=== PATIENT | female | born 1955 | race Two or more races ===

== ENCOUNTER 2016-12-26 09:47 | Outpatient (CLI) | payer BC, OTHER ==
[~2016-12-26 09:47] MED LIST: ATOR10TA GT; CANA100T PO; CHOL500052 PO; GABA-532 PO; GABA-534 PO; HYDR-548 PO; INSU100V28 IJ; LOSA1TAB39 PO; METO100T3 PO
[2016-12-26 10:41] LABS: BASOPHILS % (AUTO) 0.3 % (0.0-2.0); DIFF TOTAL % 100 %; EOSINOPHILS # (AUTO) 0.1 /CMM (0.0-0.7); EOSINOPHILS % (AUTO) 1.6 % (0.0-6.0); HEMATOCRIT 46 % (33-45); HEMOGLOBIN 15.3 g/dL (11.5-14.8); LYMPHOCYTES # (AUTO) 2.1 /CMM (0.8-4.8); LYMPHOCYTES % (AUTO) 30.5 % (20.0-44.0); MEAN CORPUSCULAR HEMOGLOBIN 30 PG (26.0-33.0); MEAN CORPUSCULAR HGB CONC 33 g/dl (31.0-36.0); MEAN CORPUSCULAR VOLUME 90 fL (82-100); MONOCYTES # (AUTO) 0.4 /CMM (0.1-1.30); MONOCYTES % (AUTO) 5.8 % (2.0-12.0); NEUTROPHILS # (AUTO) 4.3 /CMM (1.8-8.9); NEUTROPHILS % (AUTO) 61.8 % (43.0-81.0); PLATELET COUNT (AUTO) 183 /CMM (150-450); RED BLOOD CELL COUNT(AUTO) 5.15 MIL/uL (4.0-5.2); WHITE BLOOD COUNT (AUTO) 6.9 K/uL (4.3-11.0)
[2016-12-26 10:52] LABS: KETONES,URINE NEGATIVE (NEGATIVE); LEUKOCYTE ESTERASE ,URINE NEGATIVE (NEGATIVE)
[2016-12-26 10:53] LABS: ADD UA MICROSCOPIC YES
[2016-12-26 10:59] LABS: ADD URINE CULTURE NO; WBC,URINE 0-2 /HPF (0-3)
[2016-12-26 11:09] LABS: ALBUMIN 4.1 g/dL (3.4-5.0); BILIRUBIN,TOTAL 0.5 mg/dL (0.2-1.0); CALCIUM, SERUM 10.3 mg/dL (8.5-10.1); CREATININE 1.1 mg/dL (0.6-1.3); POTASSIUM 4.3 mmol/L (3.5-5.1); TOTAL PROTEIN, SERUM 8.1 g/dL (6.4-8.2)
[2016-12-26 11:16] LABS: ERYTHROCYTE SEDIMENTATION RATE 9 MM/HR (0-30)
[2016-12-26 11:43] LABS: THYROID STIMULATING HORMONE 0.71 uIU/mL (0.358-3.74); URIC ACID 7.9 mg/dL (2.6-7.2)
[2016-12-27 12:35] LABS: VIT D, 25-HYDROXY 49.9 ng/mL (30.0-100.0)
[2016-12-27 15:48] LABS: CA 27.29 6.4 U/mL (0.0-38.6)
== END 2016-12-26 23:59 | disposition home or self-care (01) ==
LOC: LAB 09:47
PROVIDERS: ATTEND Legal Medicine
DX: R10.9 Unspecified abdominal pain (principal); Z90.49 Acquired absence of other specified parts of digestive tract
CPT/HCPCS: 36415; 80053-TC; 80061-TC; 81000-TC; 82043; 82306; 82728-TC; 82746; 83540-TC; 84443-TC; 84550-TC; 85025-TC; 85652-TC; 86300; 86304

== ENCOUNTER 2017-01-25 08:13 | Outpatient (CLI) | payer BC, OTHER | END 2017-01-25 23:59 | disposition home or self-care (01) | LOC: MRI 08:13 | PROVIDERS: ATTEND Legal Medicine | DX: S46.012A Strain of muscle(s) and tendon(s) of the rotator cuff of left shoulder, initial encounter (principal); X58.XXXA Exposure to other specified factors, initial encounter; Y93.89 Activity, other specified; Y92.89 Other specified places as the place of occurrence of the external cause; Y99.8 Other external cause status | CPT/HCPCS: 73221-TC ==

== ENCOUNTER 2017-05-03 12:41 | Outpatient (CLI) | payer BC, OTHER | END 2017-05-03 23:59 | disposition home or self-care (01) | LOC: CARD 12:41 | PROVIDERS: ATTEND Legal Medicine | DX: M79.604 Pain in right leg (principal); M79.605 Pain in left leg | CPT/HCPCS: 93970-TC ==

== ENCOUNTER 2017-05-14 07:35 | Outpatient (CLI) | payer BC, OTHER ==
[2017-05-14 09:01] LABS: BASOPHILS % (AUTO) 0.5 % (0.0-2.0); EOSINOPHILS % (AUTO) 0.6 % (0.0-6.0); HEMATOCRIT 44 % (33-45); HEMOGLOBIN 14.9 g/dL (11.5-14.8); LYMPHOCYTES # (AUTO) 1.8 /CMM (0.8-4.8); LYMPHOCYTES % (AUTO) 23.4 % (20.0-44.0); MEAN CORPUSCULAR HEMOGLOBIN 30 PG (26.0-33.0); MEAN CORPUSCULAR HGB CONC 34 g/dl (31.0-36.0); MEAN CORPUSCULAR VOLUME 90 fL (82-100); MONOCYTES # (AUTO) 0.5 /CMM (0.1-1.30); MONOCYTES % (AUTO) 5.8 % (2.0-12.0); NEUTROPHILS # (AUTO) 5.5 /CMM (1.8-8.9); NEUTROPHILS % (AUTO) 69.7 % (43.0-81.0); PLATELET COUNT (AUTO) 196 /CMM (150-450); RDW COEFFICIENT OF VARIATION 14.1 (11.5-15.0); RED BLOOD CELL COUNT(AUTO) 4.92 MIL/uL (4.0-5.2); WHITE BLOOD COUNT (AUTO) 7.8 K/uL (4.3-11.0)
[2017-05-14 09:32] LABS: ALBUMIN 3.6 g/dL (3.4-5.0); BILIRUBIN,TOTAL 0.4 mg/dL (0.2-1.0); TOTAL PROTEIN, SERUM 7.3 g/dL (6.4-8.2)
[2017-05-14 09:38] LABS: THYROID STIMULATING HORMONE 0.65 uIU/mL (0.358-3.74); URIC ACID 6.7 mg/dL (2.6-7.2)
[2017-05-15 12:16] LABS: CA 27.29 6.2 U/mL (0.0-38.6)
== END 2017-05-14 23:59 | disposition home or self-care (01) ==
LOC: LAB 07:35
PROVIDERS: ATTEND Legal Medicine
DX: C50.911 Malignant neoplasm of unspecified site of right female breast (principal); E78.00 Pure hypercholesterolemia, unspecified; N39.0 Urinary tract infection, site not specified; E11.9 Type 2 diabetes mellitus without complications; I10 Essential (primary) hypertension; E55.9 Vitamin D deficiency, unspecified
CPT/HCPCS: 36415; 80053-TC; 80061-TC; 80074; 82306; 84443-TC; 84550-TC; 85025-TC; 86300; 86304

== ENCOUNTER 2017-11-29 07:47 | Outpatient (CLI) | payer BC ==
[~2017-11-29 07:47] MED LIST changes: +METO100T14 PO; -METO100T3 PO
== END 2017-11-29 23:59 | disposition home or self-care (01) ==
LOC: MRI 07:47
PROVIDERS: ATTEND Physical Medicine & Rehabilitation Pain Medicine
DX: M51.36 Other intervertebral disc degeneration, lumbar region (principal); M48.061 Spinal stenosis, lumbar region without neurogenic claudication; T70.3XXA Caisson disease [decompression sickness], initial encounter; X58.XXXA Exposure to other specified factors, initial encounter; M16.0 Bilateral primary osteoarthritis of hip
CPT/HCPCS: 72148-TC; 73721-TC

== ENCOUNTER 2017-12-31 07:41 | Outpatient (CLI) | payer BC ==
[2017-12-31 09:09] LABS: BASOPHILS % (AUTO) 0.5 % (0.0-2.0); EOSINOPHILS # (AUTO) 0.1 /CMM (0.0-0.7); EOSINOPHILS % (AUTO) 1.3 % (0.0-6.0); HEMATOCRIT 43 % (33-45); HEMOGLOBIN 14.6 g/dL (11.5-14.8); LYMPHOCYTES # (AUTO) 1.8 /CMM (0.8-4.8); LYMPHOCYTES % (AUTO) 27.2 % (20.0-44.0); MEAN CORPUSCULAR HEMOGLOBIN 30 PG (26.0-33.0); MEAN CORPUSCULAR HGB CONC 34 g/dl (31.0-36.0); MEAN CORPUSCULAR VOLUME 91 fL (82-100); MONOCYTES # (AUTO) 0.3 /CMM (0.1-1.30); MONOCYTES % (AUTO) 4.8 % (2.0-12.0); NEUTROPHILS # (AUTO) 4.5 /CMM (1.8-8.9); NEUTROPHILS % (AUTO) 66.2 % (43.0-81.0); PLATELET COUNT (AUTO) 203 /CMM (150-450); RDW COEFFICIENT OF VARIATION 13.5 (11.5-15.0); RED BLOOD CELL COUNT(AUTO) 4.78 MIL/uL (4.0-5.2); WHITE BLOOD COUNT (AUTO) 6.8 K/uL (4.3-11.0)
[2017-12-31 09:29] LABS: ALBUMIN 3.7 g/dL (3.4-5.0); BILIRUBIN,TOTAL 0.4 mg/dL (0.2-1.0); CALCIUM, SERUM 9.6 mg/dL (8.5-10.1); POTASSIUM 3.4 mmol/L (3.5-5.1); TOTAL PROTEIN, SERUM 7.9 g/dL (6.4-8.2)
[2017-12-31 09:32] LABS: APPEARANCE,URINE CLOUDY (CLEAR); BILIRUBIN,URINE NEGATIVE (NEGATIVE); BLOOD, URINE TRACE-INTA Ery/uL (NEGATIVE); COLOR,URINE YELLOW (YELLOW); KETONES,URINE NEGATIVE (NEGATIVE); LEUKOCYTE ESTERASE ,URINE 1+ (NEGATIVE); NITRITE, URINE NEGATIVE (NEGATIVE); PROTEIN,URINE NEGATIVE (NEGATIVE); UGLUCOSE 3+ mg/dL (NEGATIVE); UROBILINOGEN,URINE 0.2 EU/dL (0.2)
[2017-12-31 09:42] LABS: C-REACTIVE PROTEIN 0.5 mg/dL (0.0-0.9); THYROID STIMULATING HORMONE 0.718 uIU/mL (0.358-3.74); URIC ACID 7.7 mg/dL (2.6-7.2)
[2017-12-31 09:43] LABS: BACTERIA,URINE 2+ /HPF (None Seen); RBC,URINE 0-2 /HPF (0-2); SQUAMOUS EPITHELIAL CELL,UR Many /HPF (None Seen); YEAST,URINE Rare /HPF (None Seen)
[2018-01-01 12:15] LABS: CANCER AG, 125 26.3 U/mL (0.0-38.1); CANCER AG, 15-3 10.2 U/mL (0.0-25.0)
== END 2017-12-31 23:59 | disposition home or self-care (01) ==
LOC: LAB 07:41
PROVIDERS: ATTEND Legal Medicine
DX: I12.9 Hypertensive chronic kidney disease with stage 1 through stage 4 chronic kidney disease, or unspecified chronic kidney disease (principal); E11.22 Type 2 diabetes mellitus with diabetic chronic kidney disease; N18.9 Chronic kidney disease, unspecified; D64.9 Anemia, unspecified; E03.9 Hypothyroidism, unspecified
CPT/HCPCS: 36415; 80053-TC; 80061-TC; 81000-TC; 82306; 82378; 82728-TC; 82746; 83540-TC; 84439-TC; 84443-TC; 84550-TC; 85025-TC; 85652-TC; 86140-TC; 86300; 86304; 87086-TC; 87186-TC

== ENCOUNTER 2018-04-22 09:04 | Outpatient (CLI) | payer BC | END 2018-04-22 23:59 | disposition home or self-care (01) | LOC: CT 09:04 | PROVIDERS: ATTEND Neurological Surgery | DX: M51.36 Other intervertebral disc degeneration, lumbar region (principal); M51.25 Other intervertebral disc displacement, thoracolumbar region; M48.05 Spinal stenosis, thoracolumbar region; M48.07 Spinal stenosis, lumbosacral region | CPT/HCPCS: 72131-TC ==

== ENCOUNTER 2018-06-02 08:08 | Outpatient (CLI) | payer BC ==
[2018-06-02 09:18] LABS: CALCIUM, SERUM 8.7 mg/dL (8.5-10.1); CREATININE 1.3 mg/dL (0.6-1.3); POTASSIUM 4.1 mmol/L (3.5-5.1)
== END 2018-06-02 23:59 | disposition home or self-care (01) ==
LOC: LAB 08:08
PROVIDERS: ATTEND Legal Medicine
DX: E11.9 Type 2 diabetes mellitus without complications (principal); M47.894 Other spondylosis, thoracic region
CPT/HCPCS: 36415; 72074-TC; 72110-TC; 80048-TC

== ENCOUNTER 2018-06-04 09:56 | Outpatient (CLI) | payer BC ==
[2018-06-04] MEDS ORDERED: GADODIAMIDE 5 MMOL/10 ML VIAL IJ ONE (09:57)
== END 2018-06-04 23:59 | disposition home or self-care (01) ==
LOC: DS 09:56
DX: M51.24 Other intervertebral disc displacement, thoracic region (principal); M51.34 Other intervertebral disc degeneration, thoracic region; M51.26 Other intervertebral disc displacement, lumbar region; M51.36 Other intervertebral disc degeneration, lumbar region
CPT/HCPCS: 72146-TC; 72158-TC

== ENCOUNTER 2018-09-10 06:58 | Outpatient (CLI) | payer BC ==
[~2018-09-10 06:58] MED LIST changes: +HYDR-4354 PO; -HYDR-548 PO
[2018-09-10 07:34] LABS: BASOPHILS # (AUTO) 0.1 /CMM (0.0-0.2); BASOPHILS % (AUTO) 0.8 % (0.0-2.0); EOSINOPHILS % (AUTO) 2.1 % (0.0-6.0); HEMATOCRIT 47 % (33-45); HEMOGLOBIN 15.9 g/dL (11.5-14.8); LYMPHOCYTES # (AUTO) 1.7 /CMM (0.8-4.8); LYMPHOCYTES % (AUTO) 21.4 % (20.0-44.0); MEAN CORPUSCULAR HGB CONC 34 g/dl (31.0-36.0); MEAN CORPUSCULAR VOLUME 90 fL (82-100); MONOCYTES # (AUTO) 0.4 /CMM (0.1-1.30); MONOCYTES % (AUTO) 4.3 % (2.0-12.0); NEUTROPHILS # (AUTO) 5.8 /CMM (1.8-8.9); NEUTROPHILS % (AUTO) 71.4 % (43.0-81.0); PLATELET COUNT (AUTO) 202 /CMM (150-450); RED BLOOD CELL COUNT(AUTO) 5.28 MIL/uL (4.0-5.2); WHITE BLOOD COUNT (AUTO) 8.2 K/uL (4.3-11.0)
[2018-09-10 07:38] LABS: APPEARANCE,URINE SL CLOUDY (CLEAR); BILIRUBIN,URINE NEGATIVE (NEGATIVE); BLOOD, URINE NEGATIVE Ery/uL (NEGATIVE); COLOR,URINE YELLOW (YELLOW); KETONES,URINE NEGATIVE (NEGATIVE); LEUKOCYTE ESTERASE ,URINE NEGATIVE (NEGATIVE); NITRITE, URINE NEGATIVE (NEGATIVE); PH,URINE 5.5 (5.0-8.0); PROTEIN,URINE NEGATIVE (NEGATIVE); UGLUCOSE 3+ mg/dL (NEGATIVE); UROBILINOGEN,URINE 0.2 EU/dL (0.2)
[2018-09-10 07:43] LABS: BACTERIA,URINE None seen /HPF (None Seen); RBC,URINE 0-2 /HPF (0-2); SQUAMOUS EPITHELIAL CELL,UR Few /HPF (None Seen); WBC,URINE NONE SEEN /HPF (0-3)
[2018-09-10 08:01] LABS: ALBUMIN 3.8 g/dL (3.4-5.0); BILIRUBIN,TOTAL 0.6 mg/dL (0.2-1.0); CALCIUM, SERUM 9.4 mg/dL (8.5-10.1); CREATININE 1.3 mg/dL (0.6-1.3); POTASSIUM 4.3 mmol/L (3.5-5.1); TOTAL PROTEIN, SERUM 7.7 g/dL (6.4-8.2)
[2018-09-10 08:11] LABS: THYROID STIMULATING HORMONE 1.002 uIU/mL (0.358-3.74); URIC ACID 8.3 mg/dL (2.6-7.2)
[2018-09-11 08:25] LABS: CANCER AG, 125 23.3 U/mL (0.0-38.1); CANCER AG, 15-3 9.4 U/mL (0.0-25.0)
[2018-09-11 12:07] LABS: *FOLIC ACID 12.6 ng/mL (>3.0)
== END 2018-09-10 23:59 | disposition home or self-care (01) ==
LOC: LAB 06:58
PROVIDERS: ATTEND Legal Medicine
DX: Z00.01 Encounter for general adult medical examination with abnormal findings (principal); E11.9 Type 2 diabetes mellitus without complications; E55.9 Vitamin D deficiency, unspecified; I10 Essential (primary) hypertension; J44.9 Chronic obstructive pulmonary disease, unspecified
CPT/HCPCS: 36415; 80053-TC; 80061-TC; 81000-TC; 82306; 82728-TC; 83540-TC; 84439-TC; 84443-TC; 84550-TC; 85025-TC; 86300; 86304

== ENCOUNTER 2018-12-25 07:38 | Outpatient (CLI) | payer BC | END 2018-12-25 23:59 | disposition home or self-care (01) | LOC: MRI 07:38 | PROVIDERS: ATTEND Specialist | DX: M51.27 Other intervertebral disc displacement, lumbosacral region (principal); M51.36 Other intervertebral disc degeneration, lumbar region; M51.25 Other intervertebral disc displacement, thoracolumbar region; M51.34 Other intervertebral disc degeneration, thoracic region; M25.78 Osteophyte, vertebrae; M12.88 Other specific arthropathies, not elsewhere classified, other specified site; M48.05 Spinal stenosis, thoracolumbar region; M48.07 Spinal stenosis, lumbosacral region | CPT/HCPCS: 72146-TC; 72148-TC ==

== ENCOUNTER 2019-01-09 08:44 | Outpatient (CLI) | payer BC | END 2019-01-09 23:59 | disposition home or self-care (01) | LOC: CT 08:44 | PROVIDERS: ATTEND Specialist | DX: M51.05 Intervertebral disc disorders with myelopathy, thoracolumbar region (principal); M48.05 Spinal stenosis, thoracolumbar region; M43.16 Spondylolisthesis, lumbar region; M12.88 Other specific arthropathies, not elsewhere classified, other specified site; I70.0 Atherosclerosis of aorta; Z90.49 Acquired absence of other specified parts of digestive tract | CPT/HCPCS: 72074-TC; 72110-TC; 72128-TC ==

== ENCOUNTER 2019-02-04 08:26 | Outpatient (CLI) | payer BC ==
[2019-02-04 09:04] LABS: APPEARANCE,URINE SL CLOUDY (CLEAR); BILIRUBIN,URINE NEGATIVE (NEGATIVE); BLOOD, URINE NEGATIVE Ery/uL (NEGATIVE); COLOR,URINE YELLOW (YELLOW); KETONES,URINE NEGATIVE (NEGATIVE); LEUKOCYTE ESTERASE ,URINE NEGATIVE (NEGATIVE); NITRITE, URINE NEGATIVE (NEGATIVE); PROTEIN,URINE NEGATIVE (NEGATIVE); UGLUCOSE 3+ mg/dL (NEGATIVE); UROBILINOGEN,URINE 0.2 EU/dL (0.2)
[2019-02-04 09:09] LABS: BASOPHILS # (AUTO) 0.1 /CMM (0.0-0.2); BASOPHILS % (AUTO) 0.6 % (0.0-2.0); EOSINOPHILS % (AUTO) 1.3 % (0.0-6.0); HEMATOCRIT 49 % (33-45); HEMOGLOBIN 16.4 g/dL (11.5-14.8); LYMPHOCYTES # (AUTO) 1.9 /CMM (0.8-4.8); LYMPHOCYTES % (AUTO) 22.1 % (20.0-44.0); MEAN CORPUSCULAR HGB CONC 34 g/dl (31.0-36.0); MEAN CORPUSCULAR VOLUME 91 fL (82-100); MONOCYTES # (AUTO) 0.5 /CMM (0.1-1.30); MONOCYTES % (AUTO) 5.3 % (2.0-12.0); NEUTROPHILS # (AUTO) 6.1 /CMM (1.8-8.9); NEUTROPHILS % (AUTO) 70.7 % (43.0-81.0); PLATELET COUNT (AUTO) 210 /CMM (150-450); RED BLOOD CELL COUNT(AUTO) 5.32 MIL/uL (4.0-5.2); WHITE BLOOD COUNT (AUTO) 8.6 K/uL (4.3-11.0)
[2019-02-04 09:26] LABS: ALBUMIN 4.2 g/dL (3.4-5.0); BILIRUBIN,TOTAL 0.5 mg/dL (0.2-1.0); CALCIUM, SERUM 10.2 mg/dL (8.5-10.1); CREATININE 1.1 mg/dL (0.6-1.3); POTASSIUM 3.6 mmol/L (3.5-5.1); TOTAL PROTEIN, SERUM 8.5 g/dL (6.4-8.2)
[2019-02-04 10:11] LABS: BACTERIA,URINE Few /HPF (None Seen); RBC,URINE NONE SEEN /HPF (0-2); SQUAMOUS EPITHELIAL CELL,UR Few /HPF (None Seen); WBC,URINE 0-2 /HPF (0-3); YEAST,URINE Few /HPF (None Seen)
[2019-02-04 10:23] LABS: FREE T4 (FREE THYROXINE) 1.29 ng/dL (0.76-1.46)
[2019-02-05 08:07] LABS: CANCER AG, 125 26.7 U/mL (0.0-38.1); CANCER AG, 15-3 9.8 U/mL (0.0-25.0); FOLIC ACID 17.1 ng/mL (>3.0)
== END 2019-02-04 23:59 | disposition home or self-care (01) ==
LOC: LAB 08:26
PROVIDERS: ATTEND Legal Medicine
DX: Z00.00 Encounter for general adult medical examination without abnormal findings (principal); D64.9 Anemia, unspecified; E55.9 Vitamin D deficiency, unspecified; E11.9 Type 2 diabetes mellitus without complications; I10 Essential (primary) hypertension; E03.9 Hypothyroidism, unspecified
CPT/HCPCS: 36415; 80053-TC; 80061-TC; 81000-TC; 82306; 83540-TC; 84439-TC; 84550-TC; 85025-TC; 85730-TC; 86300; 86304; 87086-TC; 87186-TC

== ENCOUNTER 2019-02-17 07:10 | Outpatient (CLI) | payer BC ==
[2019-02-17 11:16] LABS: BASOPHILS % (AUTO) 0.5 % (0.0-2.0); EOSINOPHILS % (AUTO) 0.8 % (0.0-6.0); HEMATOCRIT 47 % (33-45); LYMPHOCYTES # (AUTO) 2.2 /CMM (0.8-4.8); LYMPHOCYTES % (AUTO) 24.4 % (20.0-44.0); MEAN CORPUSCULAR HGB CONC 34 g/dl (31.0-36.0); MEAN CORPUSCULAR VOLUME 91 fL (82-100); MONOCYTES # (AUTO) 0.4 /CMM (0.1-1.30); MONOCYTES % (AUTO) 4.1 % (2.0-12.0); NEUTROPHILS # (AUTO) 6.3 /CMM (1.8-8.9); NEUTROPHILS % (AUTO) 70.2 % (43.0-81.0); PLATELET COUNT (AUTO) 194 /CMM (150-450); RED BLOOD CELL COUNT(AUTO) 5.17 MIL/uL (4.0-5.2); WHITE BLOOD COUNT (AUTO) 8.9 K/uL (4.3-11.0)
[2019-02-17 11:20] LABS: APPEARANCE,URINE CLEAR (CLEAR); BILIRUBIN,URINE NEGATIVE (NEGATIVE); BLOOD, URINE NEGATIVE Ery/uL (NEGATIVE); COLOR,URINE YELLOW (YELLOW); KETONES,URINE NEGATIVE (NEGATIVE); LEUKOCYTE ESTERASE ,URINE NEGATIVE (NEGATIVE); NITRITE, URINE NEGATIVE (NEGATIVE); PROTEIN,URINE NEGATIVE (NEGATIVE); UGLUCOSE 3+ mg/dL (NEGATIVE); UROBILINOGEN,URINE 0.2 EU/dL (0.2)
[2019-02-17 11:24] LABS: CALCIUM, SERUM 9.8 mg/dL (8.5-10.1); CREATININE 1.1 mg/dL (0.6-1.3); POTASSIUM 3.9 mmol/L (3.5-5.1)
== END 2019-02-17 23:59 | disposition home or self-care (01) ==
LOC: CARD 07:10
PROVIDERS: ATTEND Internal Medicine Cardiovascular Disease
DX: Z01.810 Encounter for preprocedural cardiovascular examination (principal); I10 Essential (primary) hypertension; D64.9 Anemia, unspecified; R53.1 Weakness; R06.02 Shortness of breath; D68.59 Other primary thrombophilia
CPT/HCPCS: 36415; 80048-TC; 81000-TC; 85025-TC; 85610-TC; 85730-TC; 87086-TC; 87186-TC; 93307-TC

== ENCOUNTER 2019-06-01 10:33 | Outpatient (CLI) | payer BC ==
[2019-06-01 11:48] LABS: BILIRUBIN,URINE NEGATIVE (NEGATIVE); BLOOD, URINE TRACE Ery/uL (NEGATIVE); COLOR,URINE YELLOW (YELLOW); KETONES,URINE NEGATIVE (NEGATIVE); LEUKOCYTE ESTERASE ,URINE NEGATIVE (NEGATIVE); NITRITE, URINE NEGATIVE (NEGATIVE); PH,URINE 5.5 (5.0-8.0); PROTEIN,URINE NEGATIVE (NEGATIVE); UGLUCOSE 3+ mg/dL (NEGATIVE); UROBILINOGEN,URINE 0.2 EU/dL (0.2)
[2019-06-01 11:53] LABS: BASOPHILS # (AUTO) 0.1 /CMM (0.0-0.2); BASOPHILS % (AUTO) 1.1 % (0.0-2.0); EOSINOPHILS % (AUTO) 0.8 % (0.0-6.0); HEMATOCRIT 52 % (33-45); HEMOGLOBIN 16.7 g/dL (11.5-14.8); LYMPHOCYTES # (AUTO) 3.1 /CMM (0.8-4.8); LYMPHOCYTES % (AUTO) 26.6 % (20.0-44.0); MEAN CORPUSCULAR HGB CONC 32 g/dl (31.0-36.0); MEAN CORPUSCULAR VOLUME 88 fL (82-100); MONOCYTES # (AUTO) 0.6 /CMM (0.1-1.30); MONOCYTES % (AUTO) 4.9 % (2.0-12.0); NEUTROPHILS # (AUTO) 7.9 /CMM (1.8-8.9); NEUTROPHILS % (AUTO) 66.6 % (43.0-81.0); PLATELET COUNT (AUTO) 251 /CMM (150-450); WHITE BLOOD COUNT (AUTO) 11.8 K/uL (4.3-11.0)
[2019-06-01 12:00] LABS: ALBUMIN 4.4 g/dL (3.4-5.0); APPEARANCE,URINE SLIGHTLY HAZY (CLEAR); BILIRUBIN,TOTAL 0.6 mg/dL (0.2-1.0); CALCIUM, SERUM 9.5 mg/dL (8.5-10.1); CREATININE 1.1 mg/dL (0.6-1.3); POTASSIUM 3.6 mmol/L (3.5-5.1); TOTAL PROTEIN, SERUM 8.6 g/dL (6.4-8.2)
[2019-06-01 12:02] LABS: BACTERIA,URINE None seen /HPF (None Seen); RBC,URINE 0-2 /HPF (0-2); SQUAMOUS EPITHELIAL CELL,UR Few /HPF (None Seen)
[2019-06-01 12:10] LABS: THYROID STIMULATING HORMONE 1.345 uIU/mL (0.358-3.74); URIC ACID 6.3 mg/dL (2.6-7.2)
[2019-06-02 13:07] LABS: CANCER AG, 125 25.2 U/mL (0.0-38.1); CANCER AG, 15-3 8.2 U/mL (0.0-25.0); FOLIC ACID 11.2 ng/mL (>3.0)
== END 2019-06-01 23:59 | disposition home or self-care (01) ==
LOC: LAB 10:33
PROVIDERS: ATTEND Legal Medicine
DX: Z00.00 Encounter for general adult medical examination without abnormal findings (principal); M47.814 Spondylosis without myelopathy or radiculopathy, thoracic region; E11.9 Type 2 diabetes mellitus without complications; E78.00 Pure hypercholesterolemia, unspecified; E03.9 Hypothyroidism, unspecified; E55.9 Vitamin D deficiency, unspecified; I10 Essential (primary) hypertension; D64.9 Anemia, unspecified; Z90.49 Acquired absence of other specified parts of digestive tract
CPT/HCPCS: 72074-TC; 80053-TC; 80061-TC; 81000-TC; 82306; 82728-TC; 83540-TC; 84439-TC; 84443-TC; 84550-TC; 85025-TC; 86300; 86304; 87086-TC

== ENCOUNTER 2019-07-28 09:50 | Outpatient (CLI) | payer BC ==
[2019-07-28 11:23] LABS: BASOPHILS # (AUTO) 0.1 /CMM (0.0-0.2); BASOPHILS % (AUTO) 0.6 % (0.0-2.0); EOSINOPHILS % (AUTO) 0.6 % (0.0-6.0); HEMATOCRIT 49 % (33-45); HEMOGLOBIN 16.2 g/dL (11.5-14.8); LYMPHOCYTES # (AUTO) 2.3 /CMM (0.8-4.8); LYMPHOCYTES % (AUTO) 27.2 % (20.0-44.0); MEAN CORPUSCULAR HGB CONC 33 g/dl (31.0-36.0); MEAN CORPUSCULAR VOLUME 89 fL (82-100); MONOCYTES # (AUTO) 0.4 /CMM (0.1-1.30); MONOCYTES % (AUTO) 4.5 % (2.0-12.0); NEUTROPHILS # (AUTO) 5.8 /CMM (1.8-8.9); NEUTROPHILS % (AUTO) 67.1 % (43.0-81.0); PLATELET COUNT (AUTO) 193 /CMM (150-450); RED BLOOD CELL COUNT(AUTO) 5.53 MIL/uL (4.0-5.2); WHITE BLOOD COUNT (AUTO) 8.6 K/uL (4.3-11.0)
[2019-07-28 11:49] LABS: APPEARANCE,URINE Clear (CLEAR); BILIRUBIN,URINE Negative (NEGATIVE); BLOOD, URINE Negative Ery/uL (NEGATIVE); COLOR,URINE Yellow (YELLOW); KETONES,URINE Negative (NEGATIVE); LEUKOCYTE ESTERASE ,URINE Negative (NEGATIVE); NITRITE, URINE Negative (NEGATIVE); PROTEIN,URINE Negative (NEGATIVE); UGLUCOSE 500 MG/DL mg/dL (NEGATIVE); UROBILINOGEN,URINE 0.2 EU/dL (0.2)
[2019-07-28 13:46] LABS: ALBUMIN 4.3 g/dL (3.4-5.0); BILIRUBIN,TOTAL 0.5 mg/dL (0.2-1.0); CALCIUM, SERUM 9.9 mg/dL (8.5-10.1); CREATININE 1.1 mg/dL (0.6-1.3); POTASSIUM 3.7 mmol/L (3.5-5.1); TOTAL PROTEIN, SERUM 8.5 g/dL (6.4-8.2)
[2019-07-28 14:25] LABS: LYMPHOCYTES % (MANUAL) 8 % (16-48); MONOCYTES % (MANUAL) 4 % (0-11.0); NEUTROPHILS % (MANUAL) 88 (42-76)
[2019-07-28 16:40] LABS: URIC ACID 5.8 mg/dL (2.6-7.2)
[2019-07-28 17:05] LABS: THYROID STIMULATING HORMONE 1.044 uIU/mL (0.358-3.74)
[2019-07-29 07:09] LABS: CA 27.29 <3.5 U/mL (0.0-38.6)
[2019-07-29 08:08] LABS: CANCER AG, 125 21.4 U/mL (0.0-38.1); CANCER AG, 15-3 6.5 U/mL (0.0-25.0)
== END 2019-07-28 23:59 | disposition home or self-care (01) ==
LOC: CT 09:50
PROVIDERS: ATTEND Legal Medicine
DX: Z00.00 Encounter for general adult medical examination without abnormal findings (principal); M17.12 Unilateral primary osteoarthritis, left knee; M22.8X2 Other disorders of patella, left knee; E27.8 Other specified disorders of adrenal gland; M47.816 Spondylosis without myelopathy or radiculopathy, lumbar region; I25.10 Atherosclerotic heart disease of native coronary artery without angina pectoris; I70.0 Atherosclerosis of aorta; E78.00 Pure hypercholesterolemia, unspecified; I12.9 Hypertensive chronic kidney disease with stage 1 through stage 4 chronic kidney disease, or unspecified chronic kidney disease; E11.22 Type 2 diabetes mellitus with diabetic chronic kidney disease; N18.9 Chronic kidney disease, unspecified; E03.9 Hypothyroidism, unspecified; D64.9 Anemia, unspecified; E55.9 Vitamin D deficiency, unspecified; Z90.49 Acquired absence of other specified parts of digestive tract
CPT/HCPCS: 36415; 73562; 80053-TC; 80061-TC; 81000-TC; 82306; 82728-TC; 83540-TC; 84439-TC; 84443-TC; 84550-TC; 85025-TC; 86300; 86304; 87086-TC; 87186-TC

== ENCOUNTER 2019-09-14 10:11 | Outpatient (CLI) | payer BC | END 2019-09-14 23:59 | disposition home or self-care (01) | LOC: RAD 10:11 | DX: M48.04 Spinal stenosis, thoracic region (principal); M25.78 Osteophyte, vertebrae; Z98.1 Arthrodesis status | CPT/HCPCS: 72074-TC ==

== ENCOUNTER 2019-11-13 07:51 | Outpatient (CLI) | payer BC ==
[2019-11-13 08:42] LABS: BASOPHILS # (AUTO) 0.1 /CMM (0.0-0.2); BASOPHILS % (AUTO) 0.8 % (0.0-2.0); HEMATOCRIT 49 % (33-45); MEAN CORPUSCULAR HGB CONC 32 g/dl (31.0-36.0); MEAN CORPUSCULAR VOLUME 90 fL (82-100); MONOCYTES # (AUTO) 0.3 /CMM (0.1-1.30); MONOCYTES % (AUTO) 4.2 % (2.0-12.0); NEUTROPHILS # (AUTO) 5.6 /CMM (1.8-8.9); PLATELET COUNT (AUTO) 190 /CMM (150-450); RED BLOOD CELL COUNT(AUTO) 5.49 MIL/uL (4.0-5.2); WHITE BLOOD COUNT (AUTO) 8.2 K/uL (4.3-11.0)
[2019-11-13 09:13] LABS: C-REACTIVE PROTEIN < 0.2 mg/dL (0.0-0.9)
[2019-11-13 10:12] LABS: ALANINE AMINOTRANSFERASE 25 U/L (12-78); ALBUMIN 3.9 g/dL (3.4-5.0); ALKALINE PHOSPHATASE 108 U/L (46-116); ASPARTATE AMINOTRANSFERASE 27 U/L (15-37); BILIRUBIN,TOTAL 0.4 mg/dL (0.2-1.0); CALCIUM, SERUM 9.8 mg/dL (8.5-10.1); CARBON DIOXIDE 19 mmol/L (21-32); CHLORIDE 103 mmol/L (98-107); CREATININE 1.2 mg/dL (0.6-1.3); GLUCOSE 252 mg/dL (74-106); POTASSIUM 4.7 mmol/L (3.5-5.1); SODIUM SERUM 142 mmol/L (136-145); TOTAL PROTEIN, SERUM 7.8 g/dL (6.4-8.2); UREA NITROGEN, BLOOD 21 mg/dL (7-18)
[2019-11-14 08:06] LABS: CA 27.29 5.2 U/mL (0.0-38.6)
[2019-11-14 11:06] LABS: CANCER AG, 125 19.4 U/mL (0.0-38.1); CANCER AG, 15-3 6.9 U/mL (0.0-25.0)
== END 2019-11-13 23:59 | disposition home or self-care (01) ==
LOC: LAB 07:51
PROVIDERS: ATTEND Legal Medicine
DX: C50.911 Malignant neoplasm of unspecified site of right female breast (principal)
CPT/HCPCS: 36415; 80053-TC; 85025-TC; 85652-TC; 86140-TC; 86300; 86304

== ENCOUNTER 2019-11-17 09:10 | Outpatient (CLI) | payer BC ==
[2019-11-17] MEDS ORDERED: IV NS 0.9% 250 ML IV ONE (09:19)
[2019-11-17] MEDS ORDERED: CT SWABBABLE VALVE TRANS SET 1 EA INFUS.SET MC ONE (09:19)
[2019-11-17] MEDS ORDERED: IOHEXOL-300 100 ML VIAL IV ONE (09:19)
== END 2019-11-17 23:59 | disposition home or self-care (01) ==
LOC: CT 09:10
PROVIDERS: ATTEND Legal Medicine
DX: I25.10 Atherosclerotic heart disease of native coronary artery without angina pectoris (principal); M43.24 Fusion of spine, thoracic region; R22.2 Localized swelling, mass and lump, trunk; N64.59 Other signs and symptoms in breast; Z90.49 Acquired absence of other specified parts of digestive tract
CPT/HCPCS: 71260; J7050; Q9967

== ENCOUNTER 2019-12-16 07:47 | Outpatient (CLI) | payer BC ==
[2019-12-16 09:29] LABS: CALCIUM, SERUM 9.5 mg/dL (8.5-10.1); CREATININE 1.2 mg/dL (0.6-1.3); POTASSIUM 4.6 mmol/L (3.5-5.1)
== END 2019-12-16 23:59 | disposition home or self-care (01) ==
LOC: LAB 07:47
PROVIDERS: ATTEND Legal Medicine
DX: D64.9 Anemia, unspecified (principal); I10 Essential (primary) hypertension
CPT/HCPCS: 36415; 80048-TC

== ENCOUNTER → 2020-06-07 | Day surgery (SDC) | payer BC ==
[~2020-06-07] VITALS: Ht 157.5 cm; Wt 105.2 kg
[~2020-06-07] MED LIST changes: +IOHEXOL-350 100 ML VIAL IV ONE; +IV NS 0.9% 250 ML IV ONE; +METOPROLOL TARTRATE INJ 5 MG/5 ML AMPUL IVP PRN; +METOPROLOL TARTRATE INJ 5 MG/5 ML AMPUL ONE; +NITROGLYCERIN 0.4 MG/TAB BOTTLE ONE; +NITROGLYCERIN 0.4 MG/TAB BOTTLE SL ONE
[2020-06-07 11:34] LABS: CALCIUM, SERUM 9.7 mg/dL (8.5-10.1); POTASSIUM 3.8 mmol/L (3.5-5.1)
[2020-06-07 11:57] VITALS: BP 131/62
--- NOTE | 2020-06-07 12:06 | NUR ---
RN NOTES; Post CTA procedure: IV removed. Catheter intact and site benign. Pressure and 4x4 applied to site. No bleeding noted.Patient discharged to home in stable condition. Written and verbal after care instructions given. Patient verbalizes understanding of instruction.
== END | disposition home or self-care (01) ==
LOC: CT 10:38
PROVIDERS: ATTEND Internal Medicine Interventional Cardiology
DX: I25.10 Atherosclerotic heart disease of native coronary artery without angina pectoris (principal); I10 Essential (primary) hypertension
CPT/HCPCS: 36415; 75574; 80048; J3490; J7050; Q9967

== ENCOUNTER 2020-06-15 05:57 | Day surgery (SDC) | payer BC ==
[~2020-06-15] VITALS: Ht 167.6 cm; Wt 106.6 kg
[2020-06-15] VITALS (11 sets, daily range): BP systolic 128–150; BP diastolic 56–72
[~2020-06-15 05:57] MED LIST changes: -IOHEXOL-350 100 ML VIAL IV ONE; -IV NS 0.9% 250 ML IV ONE; -METOPROLOL TARTRATE INJ 5 MG/5 ML AMPUL IVP PRN; -METOPROLOL TARTRATE INJ 5 MG/5 ML AMPUL ONE; -NITROGLYCERIN 0.4 MG/TAB BOTTLE ONE; -NITROGLYCERIN 0.4 MG/TAB BOTTLE SL ONE
[2020-06-15 06:22] LABS: BASOPHILS # (AUTO) 0.1 /CMM (0.0-0.2); BASOPHILS % (AUTO) 0.7 % (0.0-2.0); EOSINOPHILS % (AUTO) 1.2 % (0.0-6.0); HEMATOCRIT 45 % (33-45); LYMPHOCYTES # (AUTO) 2.1 /CMM (0.8-4.8); LYMPHOCYTES % (AUTO) 28.4 % (20.0-44.0); MEAN CORPUSCULAR HGB CONC 34 g/dl (31.0-36.0); MEAN CORPUSCULAR VOLUME 91 fL (82-100); MONOCYTES # (AUTO) 0.5 /CMM (0.1-1.30); MONOCYTES % (AUTO) 6.3 % (2.0-12.0); NEUTROPHILS # (AUTO) 4.6 /CMM (1.8-8.9); NEUTROPHILS % (AUTO) 63.4 % (43.0-81.0); PLATELET COUNT (AUTO) 171 /CMM (150-450); RED BLOOD CELL COUNT(AUTO) 4.91 MIL/uL (4.0-5.2); WHITE BLOOD COUNT (AUTO) 7.3 K/uL (4.3-11.0)
[2020-06-15] MEDS ORDERED: IODIXANOL 0 ML IV ONE (06:34)
[2020-06-15] MEDS ORDERED: IV NS 0.9% 1,000 ML ONE (06:41)
[2020-06-15] MEDS ORDERED: IV SET PRIMARY 1 EA INFUS.SET MC ONE (06:41)
[2020-06-15 06:42] LABS: ALBUMIN 3.7 g/dL (3.4-5.0); BILIRUBIN,TOTAL 0.6 mg/dL (0.2-1.0); CALCIUM, SERUM 9.6 mg/dL (8.5-10.1); POTASSIUM 3.8 mmol/L (3.5-5.1); TOTAL PROTEIN, SERUM 7.4 g/dL (6.4-8.2)
[2020-06-15] MEDS ORDERED: IODIXANOL 150 ML IV ONE (06:42)
[2020-06-15] MEDS ORDERED: LIDOCAINE HCL/PF 1% 30 ML SDV ONE (06:42)
[2020-06-15] MEDS ORDERED: VERAPAMIL HCL IV 5 MG/2 ML VIAL ONE (06:42)
[2020-06-15] MEDS ORDERED: HEPARIN SODIUM, PORCINE 1,000 UNIT/ML VIAL ONE (06:43)
[2020-06-15] MEDS ORDERED: NITROGLYCERIN ICAR 1,000 MCG/10 ML VIAL ICAR ONE (06:43)
[2020-06-15] MEDS ORDERED: FENTANYL PF 100MCG/2ML AMPUL ONE (07:32)
[2020-06-15] MEDS ORDERED: MIDAZOLAM HCL 2 MG/2ML VIAL ONE (07:32)
--- NOTE | 2020-06-15 08:15 | NUR ---
PT WHEELED TO RECOVERY ROOM VIA [employer]. AAOX4, NOT IN RESPIRATORY DISTRESS, V/S STABLE, KEPT RESTED AND COMFORTABLE. NO BLEEDING NOTED ON THE RIGHT RADIAL SITE. WILL CONTINUE TO MONITOR.
--- NOTE | 2020-06-15 08:16 | NUR ---
PULSE OX PLACED ON THE R INDEX FINGER. CIRCULATION ADEQUATE, NO BLEEDING NOTED. POSITIVE PATENT HOMEOSTASIS. WILL CONTINUE TO MONITOR.
--- NOTE | 2020-06-15 08:56 | NUR ---
3 ML OF AIR REMOVED FROM TH TR BAND. NO BLEEDING NOTED, CIRCULATION ADEQUATE. V/S STABLE. WILL CONTINUE TO MONITOR.
--- NOTE | 2020-06-15 09:11 | NUR ---
3 ML OF AIR REMOVED FROM TH TR BAND. NO BLEEDING NOTED, CIRCULATION ADEQUATE. V/S STABLE. WILL CONTINUE TO MONITOR.
--- NOTE | 2020-06-15 09:30 | NUR ---
3 ML OF AIR REMOVED FROM TH TR BAND. NO BLEEDING NOTED, CIRCULATION ADEQUATE. V/S STABLE. WILL CONTINUE TO MONITOR.
--- NOTE | 2020-06-15 10:00 | NUR ---
TR BAND REMOVED. NO BLEEDING NOTED OR HEMATOMA. CIRCULATION IS ADEQUATE. 4X4 GAUZE APPLIED.
--- NOTE | 2020-06-15 11:48 | NUR ---
IV removed. Catheter intact and site benign. Pressure and 4x4 applied to site. No bleeding noted. Patient discharged to home in stable condition. Written and verbal after care instructions given. Patient verbalizes understanding of instruction.
== END 2020-06-15 11:50 | disposition home or self-care (01) ==
LOC: CATHLAB 05:57
PROVIDERS: ATTEND Internal Medicine Interventional Cardiology
DX: R07.9 Chest pain, unspecified (principal); I25.10 Atherosclerotic heart disease of native coronary artery without angina pectoris; E11.9 Type 2 diabetes mellitus without complications; E78.5 Hyperlipidemia, unspecified; Z88.1 Allergy status to other antibiotic agents; Z79.899 Other long term (current) drug therapy
CPT/HCPCS: 36415; 80053; 85025; 85610; 85730; 93005; 93458; 99152; C1887; J1644 ×2; J2250; J3010; J3490 ×2; Q9967; G0500

== ENCOUNTER 2020-08-01 10:23 | Outpatient (CLI) | payer BC | END 2020-08-01 23:59 | disposition home or self-care (01) | LOC: RAD 10:23 | DX: M48.04 Spinal stenosis, thoracic region (principal); G99.2 Myelopathy in diseases classified elsewhere; Z98.1 Arthrodesis status | CPT/HCPCS: 72070-TC ==

== ENCOUNTER 2020-10-03 10:22 | Emergency (ER) | payer BC ==
[~2020-10-03] VITALS: Ht 167.6 cm; Wt 106.1 kg
--- NOTE | 2020-10-03 10:33 | NUR ---
c/o fever, cough, bodyaches, headache, runny nose started s/p exposure. On room air, breathing evenly and unlabored. kept comfortable, will continue to monitor accordingly.
--- NOTE | 2020-10-03 11:57 | NUR ---
COVID SWAB SENT. PATIENT A/OX4, BREATHING EVEN ANDUNLABORED, NO SOB NOTED. NEEDS ATTENDED. AMBULATORY WITH CANE. Patient discharged to home in stable condition. Written and verbal after care instructions given. Patient verbalizes understanding of instruction.
[2020-10-03 11:58] VITALS: BP 117/76
--- NOTE | 2020-10-06 11:49 | NUR ---
CALLED AND INFORMED OF (+) RESULT
== END 2020-10-03 11:58 | disposition home or self-care (01) ==
LOC: ER 10:23
DX: U07.1 COVID-19 (principal); J06.9 Acute upper respiratory infection, unspecified; E11.9 Type 2 diabetes mellitus without complications; Z79.4 Long term (current) use of insulin; I10 Essential (primary) hypertension; Z85.3 Personal history of malignant neoplasm of breast; Z88.1 Allergy status to other antibiotic agents; Z88.0 Allergy status to penicillin; Z88.2 Allergy status to sulfonamides; M17.0 Bilateral primary osteoarthritis of knee; Z79.899 Other long term (current) drug therapy
CPT/HCPCS: 71045; 99284; C9803; U0003

== ENCOUNTER 2020-12-13 08:21 | Outpatient (CLI) | payer BC ==
[2020-12-13 10:57] LABS: BASOPHILS # (AUTO) 0.1 /CMM (0.0-0.2); BASOPHILS % (AUTO) 0.7 % (0.0-2.0); HEMATOCRIT 48 % (33-45); HEMOGLOBIN 15.7 g/dL (11.5-14.8); LYMPHOCYTES # (AUTO) 2.4 /CMM (0.8-4.8); LYMPHOCYTES % (AUTO) 25.8 % (20.0-44.0); MEAN CORPUSCULAR HGB CONC 33 g/dl (31.0-36.0); MEAN CORPUSCULAR VOLUME 94 fL (82-100); MONOCYTES # (AUTO) 0.4 /CMM (0.1-1.30); MONOCYTES % (AUTO) 4.7 % (2.0-12.0); NEUTROPHILS # (AUTO) 6.2 /CMM (1.8-8.9); NEUTROPHILS % (AUTO) 67.8 % (43.0-81.0); PLATELET COUNT (AUTO) 225 /CMM (150-450); RED BLOOD CELL COUNT(AUTO) 5.09 MIL/uL (4.0-5.2); WHITE BLOOD COUNT (AUTO) 9.1 K/uL (4.3-11.0)
[2020-12-13 10:58] LABS: BILIRUBIN,URINE NEGATIVE (NEGATIVE); COLOR,URINE YELLOW (YELLOW); LEUKOCYTE ESTERASE ,URINE NEGATIVE (NEGATIVE); NITRITE, URINE POSITIVE (NEGATIVE); PH,URINE 5.5 (5.0-8.0); PROTEIN,URINE NEGATIVE (NEGATIVE); UGLUCOSE >=1000 mg/dL (NEGATIVE); UROBILINOGEN,URINE 0.2 EU/dL (0.2)
[2020-12-13 12:06] LABS: BACTERIA,URINE Many /HPF (None Seen); RBC,URINE 0-2 /HPF (0-2); SQUAMOUS EPITHELIAL CELL,UR Few /HPF (None Seen); WBC,URINE 0-2 /HPF (0-3)
[2020-12-13 12:07] LABS: YEAST,URINE Rare /HPF (None Seen)
[2020-12-13 12:12] LABS: ALBUMIN 4.5 g/dL (3.4-5.0); BILIRUBIN,TOTAL 0.4 mg/dL (0.2-1.0); CALCIUM, SERUM 9.9 mg/dL (8.5-10.1); CREATININE 1.2 mg/dL (0.6-1.3); POTASSIUM 3.8 mmol/L (3.5-5.1); TOTAL PROTEIN, SERUM 8.5 g/dL (6.4-8.2)
[2020-12-13 14:28] LABS: THYROID STIMULATING HORMONE 0.686 uIU/mL (0.358-3.74); URIC ACID 7.3 mg/dL (2.6-7.2)
[2020-12-14 08:06] LABS: CANCER AG, 15-3 9.2 U/mL (0.0-25.0)
[2020-12-15 03:57] LABS: CA 27.29 14.2 U/mL (0.0-38.6)
== END 2020-12-13 23:59 | disposition home or self-care (01) ==
LOC: LAB 08:21
PROVIDERS: ATTEND Legal Medicine
DX: I10 Essential (primary) hypertension (principal); E11.9 Type 2 diabetes mellitus without complications; E78.5 Hyperlipidemia, unspecified; E03.9 Hypothyroidism, unspecified; D64.9 Anemia, unspecified; E55.9 Vitamin D deficiency, unspecified; R53.83 Other fatigue; Z00.00 Encounter for general adult medical examination without abnormal findings
CPT/HCPCS: 36415; 80053-TC; 80061-TC; 81001; 82306; 82607-TC; 82728-TC; 83540-TC; 84439-TC; 84443-TC; 84550-TC; 85025-TC; 86300; 87086-TC

== ENCOUNTER 2020-12-21 08:20 | Outpatient (CLI) | payer BC ==
[2020-12-21 09:51] LABS: C-REACTIVE PROTEIN 0.6 mg/dL (0.0-0.9); URIC ACID 7.6 mg/dL (2.6-7.2)
[2020-12-22 18:25] LABS: *ANA ANTI-CENTROMERE B AB <0.2 AI (0.0-0.9); *ANA ANTI-DNA(DS) AB, QN 2 IU/mL (0-9); *ANA ANTI-JO-1 <0.2 AI (0.0-0.9); *ANA ANTICHROMATIN ANTIBODY <0.2 AI (0.0-0.9); *ANA RNP ANTIBODIES 0.2 AI (0.0-0.9); *ANA SJOGREN'S ANTI-SS-A <0.2 AI (0.0-0.9); *ANA SJOGREN'S ANTI-SS-B <0.2 AI (0.0-0.9); *ANAANTI-SCLERODERMA-70 AB <0.2 AI (0.0-0.9); *ANASMITH AB <0.2 AI (0.0-0.9)
[2020-12-23 22:06] LABS: CCP IgG/IgA AB 6 units (0-19)
== END 2020-12-21 23:59 | disposition home or self-care (01) ==
LOC: LAB 08:20
PROVIDERS: ATTEND Legal Medicine
DX: M25.50 Pain in unspecified joint (principal)
CPT/HCPCS: 36415; 84550-TC; 85652-TC; 86140-TC; 86200; 86225; 86235; 86431-TC

== ENCOUNTER 2021-01-26 09:52 | Outpatient (CLI) | payer BC | END 2021-01-26 23:59 | disposition home or self-care (01) | LOC: RAD 09:52 | PROVIDERS: ATTEND Internal Medicine Interventional Cardiology | DX: M16.12 Unilateral primary osteoarthritis, left hip (principal); M19.012 Primary osteoarthritis, left shoulder; M17.12 Unilateral primary osteoarthritis, left knee; M25.752 Osteophyte, left hip; M25.712 Osteophyte, left shoulder; M25.762 Osteophyte, left knee | CPT/HCPCS: 73030-TC; 73502; 73562 ==

== ENCOUNTER 2021-04-26 08:20 | Outpatient (CLI) | payer BC ==
[2021-04-26 10:20] LABS: BILIRUBIN,URINE NEGATIVE (NEGATIVE); COLOR,URINE YELLOW (YELLOW); LEUKOCYTE ESTERASE ,URINE TRACE (NEGATIVE); NITRITE, URINE POSITIVE (NEGATIVE); PH,URINE 5.5 (5.0-8.0); PROTEIN,URINE NEGATIVE (NEGATIVE); UGLUCOSE >=1000 mg/dL (NEGATIVE); UROBILINOGEN,URINE 0.2 EU/dL (0.2)
[2021-04-26 12:37] LABS: BACTERIA,URINE Many /HPF (None Seen); RBC,URINE 0-2 /HPF (0-2)
[2021-04-26 12:38] LABS: SQUAMOUS EPITHELIAL CELL,UR Few /HPF (None Seen); YEAST,URINE Few /HPF (None Seen)
== END 2021-04-26 23:59 | disposition home or self-care (01) ==
LOC: RAD 08:20
PROVIDERS: ATTEND Legal Medicine
DX: M51.36 Other intervertebral disc degeneration, lumbar region (principal); M43.16 Spondylolisthesis, lumbar region; M25.78 Osteophyte, vertebrae; R31.9 Hematuria, unspecified
CPT/HCPCS: 72100-TC; 81001; 87086-TC

== ENCOUNTER 2021-06-21 08:27 | Outpatient (CLI) | payer BC ==
[2021-06-21 12:18] LABS: BASOPHILS # (AUTO) 0.1 K/uL (0.0-0.2); BASOPHILS % (AUTO) 0.7 % (0.0-2.0); HEMATOCRIT 46 % (33-45); HEMOGLOBIN 15.1 g/dL (11.5-14.8); LYMPHOCYTES # (AUTO) 2.1 K/uL (0.8-4.8); MEAN CORPUSCULAR HGB CONC 33 g/dl (31.0-36.0); MEAN CORPUSCULAR VOLUME 92 fL (82-100); MONOCYTES # (AUTO) 0.4 K/uL (0.1-1.30); MONOCYTES % (AUTO) 4.7 % (2.0-12.0); NEUTROPHILS # (AUTO) 5.3 K/uL (1.8-8.9); NEUTROPHILS % (AUTO) 67.6 % (43.0-81.0); PLATELET COUNT (AUTO) 207 K/uL (150-450); RED BLOOD CELL COUNT(AUTO) 5.02 MIL/uL (4.0-5.2); WHITE BLOOD COUNT (AUTO) 7.9 K/uL (4.3-11.0)
[2021-06-21 12:30] LABS: BILIRUBIN,URINE NEGATIVE (NEGATIVE); COLOR,URINE YELLOW (YELLOW); LEUKOCYTE ESTERASE ,URINE NEGATIVE (NEGATIVE); NITRITE, URINE NEGATIVE (NEGATIVE); PROTEIN,URINE NEGATIVE (NEGATIVE); UGLUCOSE >=1000 mg/dL (NEGATIVE); UROBILINOGEN,URINE 0.2 EU/dL (0.2)
[2021-06-21 13:21] LABS: ALBUMIN 4.2 g/dL (3.4-5.0); BILIRUBIN,TOTAL 0.6 mg/dL (0.2-1.0); CALCIUM, SERUM 9.6 mg/dL (8.5-10.1); CREATININE 1.1 mg/dL (0.6-1.3); POTASSIUM 4.1 mmol/L (3.5-5.1); TOTAL PROTEIN, SERUM 7.9 g/dL (6.4-8.2)
[2021-06-21 13:54] LABS: BACTERIA,URINE Moderate /HPF (None Seen); RBC,URINE 0-2 /HPF (0-2); SQUAMOUS EPITHELIAL CELL,UR Many /HPF (None Seen)
[2021-06-21 13:55] LABS: YEAST,URINE Moderate /HPF (None Seen)
[2021-06-21 14:23] LABS: FREE T4 (FREE THYROXINE) 1.17 ng/dL (0.76-1.46); THYROID STIMULATING HORMONE 0.659 uIU/mL (0.358-3.74); URIC ACID 6.2 mg/dL (2.6-7.2)
[2021-06-22 07:07] LABS: CANCER AG, 125 22.6 U/mL (0.0-38.1); CANCER AG, 15-3 7.1 U/mL (0.0-25.0)
[2021-06-22 11:07] LABS: CA 27.29 4.2 U/mL (0.0-38.6)
== END 2021-06-21 23:59 | disposition home or self-care (01) ==
LOC: LAB 08:27
PROVIDERS: ATTEND Legal Medicine
DX: E11.9 Type 2 diabetes mellitus without complications (principal); E78.5 Hyperlipidemia, unspecified; N39.0 Urinary tract infection, site not specified; E03.9 Hypothyroidism, unspecified; D64.9 Anemia, unspecified; E55.9 Vitamin D deficiency, unspecified; R30.0 Dysuria; R53.1 Weakness; R10.9 Unspecified abdominal pain; Z00.00 Encounter for general adult medical examination without abnormal findings
CPT/HCPCS: 36415; 80053-TC; 80061-TC; 81001; 82306; 82378; 82607-TC; 82728-TC; 83540-TC; 84439-TC; 84443-TC; 84550-TC; 85025-TC; 86300; 86304; 87086-TC

== ENCOUNTER 2021-08-23 08:18 | Outpatient (CLI) | payer BC | END 2021-08-23 23:59 | disposition home or self-care (01) | LOC: MRI 08:18 | PROVIDERS: ATTEND Physical Medicine & Rehabilitation Pain Medicine | DX: M19.012 Primary osteoarthritis, left shoulder (principal); M75.122 Complete rotator cuff tear or rupture of left shoulder, not specified as traumatic; M25.412 Effusion, left shoulder; M75.52 Bursitis of left shoulder; M75.22 Bicipital tendinitis, left shoulder | CPT/HCPCS: 73221-TC ==

== ENCOUNTER → 2021-12-29 | Outpatient (CLI) | payer BC ==
[2021-12-29 09:48] LABS: BASOPHILS % (AUTO) 0.4 % (0.0-2.0); EOSINOPHILS % (AUTO) 1.4 % (0.0-6.0); HEMATOCRIT 44 % (33-45); HEMOGLOBIN 14.3 g/dL (11.5-14.8); LYMPHOCYTES # (AUTO) 2.2 K/uL (0.8-4.8); LYMPHOCYTES % (AUTO) 27.9 % (20.0-44.0); MEAN CORPUSCULAR HGB CONC 33 g/dl (31.0-36.0); MEAN CORPUSCULAR VOLUME 90 fL (82-100); MONOCYTES # (AUTO) 0.5 K/uL (0.1-1.30); MONOCYTES % (AUTO) 6.6 % (2.0-12.0); NEUTROPHILS % (AUTO) 63.7 % (43.0-81.0); PLATELET COUNT (AUTO) 178 K/uL (150-450); RED BLOOD CELL COUNT(AUTO) 4.87 MIL/uL (4.0-5.2); WHITE BLOOD COUNT (AUTO) 7.8 K/uL (4.3-11.0)
[2021-12-29 09:51] LABS: BILIRUBIN,URINE NEGATIVE (NEGATIVE); COLOR,URINE YELLOW (YELLOW); LEUKOCYTE ESTERASE ,URINE NEGATIVE (NEGATIVE); NITRITE, URINE POSITIVE (NEGATIVE); PROTEIN,URINE NEGATIVE (NEGATIVE); UGLUCOSE >=1000 mg/dL (NEGATIVE); UROBILINOGEN,URINE 0.2 EU/dL (0.2)
[2021-12-29 10:25] LABS: THYROID STIMULATING HORMONE 0.664 uIU/mL (0.358-3.74)
[2021-12-29 10:37] LABS: BACTERIA,URINE Many /HPF (None Seen); RBC,URINE 0-2 /HPF (0-2); SQUAMOUS EPITHELIAL CELL,UR Few /HPF (None Seen)
[2021-12-29 10:38] LABS: YEAST,URINE Rare /HPF (None Seen)
[2021-12-29 10:43] LABS: ALBUMIN 3.8 g/dL (3.4-5.0); BILIRUBIN,TOTAL 0.6 mg/dL (0.2-1.0); CALCIUM, SERUM 9.8 mg/dL (8.5-10.1); CREATININE 0.9 mg/dL (0.6-1.3); POTASSIUM 4.1 mmol/L (3.5-5.1); TOTAL PROTEIN, SERUM 7.4 g/dL (6.4-8.2)
[2021-12-30 08:07] LABS: CANCER AG, 125 24.3 U/mL (0.0-38.1); CANCER AG, 15-3 5.7 U/mL (0.0-25.0)
[2021-12-30 12:06] LABS: CA 27.29 6.7 U/mL (0.0-38.6)
== END | disposition home or self-care (01) ==
LOC: LAB 07:46
PROVIDERS: ATTEND Legal Medicine
DX: I10 Essential (primary) hypertension (principal); E11.9 Type 2 diabetes mellitus without complications; D64.9 Anemia, unspecified; E55.9 Vitamin D deficiency, unspecified; E78.5 Hyperlipidemia, unspecified; R53.1 Weakness; Z00.00 Encounter for general adult medical examination without abnormal findings; Z85.3 Personal history of malignant neoplasm of breast
CPT/HCPCS: 36415; 80053-TC; 80061-TC; 81001; 82306; 82378; 82607-TC; 83540-TC; 84439-TC; 84443-TC; 84550-TC; 85025-TC; 86300; 86304; 87086-TC

== ENCOUNTER 2022-03-08 10:45 | Outpatient (CLI) | payer BC | END 2022-03-08 23:59 | disposition home or self-care (01) | LOC: MRI 10:45 | PROVIDERS: ATTEND Physical Medicine & Rehabilitation Pain Medicine | DX: M51.16 Intervertebral disc disorders with radiculopathy, lumbar region (principal); M48.07 Spinal stenosis, lumbosacral region; M51.27 Other intervertebral disc displacement, lumbosacral region; M48.8X6 Other specified spondylopathies, lumbar region; M48.56XD Collapsed vertebra, not elsewhere classified, lumbar region, subsequent encounter for fracture with routine healing; M43.16 Spondylolisthesis, lumbar region; M40.46 Postural lordosis, lumbar region; M51.25 Other intervertebral disc displacement, thoracolumbar region | CPT/HCPCS: 72148-TC ==

== ENCOUNTER 2022-04-25 08:04 | Outpatient (CLI) | payer BC ==
[2022-04-26 10:07] LABS: CANCER AG, 15-3 8.5 U/mL (0.0-25.0)
== END 2022-04-25 23:59 | disposition home or self-care (01) ==
LOC: LAB 08:04
PROVIDERS: ATTEND Legal Medicine
DX: Z85.3 Personal history of malignant neoplasm of breast (principal)
CPT/HCPCS: 36415; 86300

== ENCOUNTER 2022-10-01 09:16 | Outpatient (CLI) | payer BC ==
[2022-10-01 10:22] LABS: BASOPHILS % (AUTO) 0.5 % (0.0-2.0); BILIRUBIN,URINE NEGATIVE (NEGATIVE); COLOR,URINE YELLOW (YELLOW); EOSINOPHILS % (AUTO) 1.4 % (0.0-6.0); HEMATOCRIT 44 % (33-45); LEUKOCYTE ESTERASE ,URINE NEGATIVE (NEGATIVE); LYMPHOCYTES % (AUTO) 26.3 % (20.0-44.0); MEAN CORPUSCULAR HGB CONC 32 g/dl (31.0-36.0); MEAN CORPUSCULAR VOLUME 93 fL (82-100); MONOCYTES # (AUTO) 0.3 K/uL (0.1-1.30); MONOCYTES % (AUTO) 4.4 % (2.0-12.0); NEUTROPHILS # (AUTO) 5.2 K/uL (1.8-8.9); NEUTROPHILS % (AUTO) 67.4 % (43.0-81.0); NITRITE, URINE NEGATIVE (NEGATIVE); PLATELET COUNT (AUTO) 188 K/uL (150-450); PROTEIN,URINE NEGATIVE (NEGATIVE); RED BLOOD CELL COUNT(AUTO) 4.69 MIL/uL (4.0-5.2); UGLUCOSE 3+ mg/dL (NEGATIVE); UROBILINOGEN,URINE 0.2 EU/dL (0.2); WHITE BLOOD COUNT (AUTO) 7.7 K/uL (4.3-11.0)
[2022-10-01 10:46] LABS: BACTERIA,URINE Moderate /HPF (None Seen); RBC,URINE 0-2 /HPF (0-2); SQUAMOUS EPITHELIAL CELL,UR Few /HPF (None Seen); YEAST,URINE Few /HPF (None Seen)
[2022-10-01 10:59] LABS: THYROID STIMULATING HORMONE 0.779 uIU/mL (0.358-3.74); URIC ACID 6.1 mg/dL (2.6-7.2)
[2022-10-01 11:15] LABS: ALBUMIN 3.7 g/dL (3.4-5.0); BILIRUBIN,TOTAL 0.4 mg/dL (0.2-1.0); CALCIUM, SERUM 9.4 mg/dL (8.5-10.1); POTASSIUM 4.3 mmol/L (3.5-5.1); TOTAL PROTEIN, SERUM 7.2 g/dL (6.4-8.2)
[2022-10-02 10:07] LABS: CA 27.29 6.4 U/mL (0.0-38.6); CANCER AG, 15-3 6.9 U/mL (0.0-25.0)
== END 2022-10-01 23:59 | disposition home or self-care (01) ==
LOC: LAB 09:16
PROVIDERS: ATTEND Legal Medicine
DX: Z00.00 Encounter for general adult medical examination without abnormal findings (principal); E11.22 Type 2 diabetes mellitus with diabetic chronic kidney disease; C50.911 Malignant neoplasm of unspecified site of right female breast; I12.9 Hypertensive chronic kidney disease with stage 1 through stage 4 chronic kidney disease, or unspecified chronic kidney disease; E03.9 Hypothyroidism, unspecified; D64.9 Anemia, unspecified; E55.9 Vitamin D deficiency, unspecified
CPT/HCPCS: 36415; 80053-TC; 80061-TC; 81001; 82306; 82607-TC; 82728-TC; 83540-TC; 84439-TC; 84443-TC; 84550-TC; 85025-TC; 86300; 86304; 87086-TC

== ENCOUNTER 2022-10-03 11:01 | Outpatient (CLI) | payer BC | END 2022-10-03 23:59 | disposition home or self-care (01) | LOC: US 11:01 | PROVIDERS: ATTEND Legal Medicine | DX: R10.9 Unspecified abdominal pain (principal) | CPT/HCPCS: 76770-TC ==

== ENCOUNTER → 2023-02-13 | Outpatient (CLI) | payer BC | END | disposition home or self-care (01) | LOC: MRI 07:43 | PROVIDERS: ATTEND Physical Medicine & Rehabilitation Pain Medicine | DX: M51.27 Other intervertebral disc displacement, lumbosacral region (principal); M48.07 Spinal stenosis, lumbosacral region; M43.16 Spondylolisthesis, lumbar region; M47.816 Spondylosis without myelopathy or radiculopathy, lumbar region | CPT/HCPCS: 72148-TC ==

== ENCOUNTER 2023-03-27 11:14 | Outpatient (CLI) | payer BC | END 2023-03-27 23:59 | disposition home or self-care (01) | LOC: RAD 11:14 | PROVIDERS: ATTEND Neurological Surgery | DX: M47.14 Other spondylosis with myelopathy, thoracic region (principal); M51.14 Intervertebral disc disorders with radiculopathy, thoracic region | CPT/HCPCS: 72074-TC ==

== ENCOUNTER 2023-09-09 05:21 | Inpatient (IN) | payer BC ==
[~2023-09-09] VITALS: Ht 167.6 cm; Wt 99.8 kg
[2023-09-09 06:20] LABS: BASOPHILS # (AUTO) 0.1 K/uL (0.0-0.2); BASOPHILS % (AUTO) 0.9 % (0.0-2.0); EOSINOPHILS # (AUTO) 0.1 K/uL (0.0-0.7); EOSINOPHILS % (AUTO) 1.4 % (0.0-6.0); HEMATOCRIT 43 % (33-45); HEMOGLOBIN 13.9 g/dL (11.5-14.8); LYMPHOCYTES # (AUTO) 1.5 K/uL (0.8-4.8); LYMPHOCYTES % (AUTO) 21.2 % (20.0-44.0); MEAN CORPUSCULAR HEMOGLOBIN 30 PG (26.0-33.0); MEAN CORPUSCULAR HGB CONC 33 g/dl (31.0-36.0); MEAN CORPUSCULAR VOLUME 91 fL (82-100); MONOCYTES # (AUTO) 0.4 K/uL (0.1-1.30); MONOCYTES % (AUTO) 5.2 % (2.0-12.0); NEUTROPHILS # (AUTO) 5.1 K/uL (1.8-8.9); NEUTROPHILS % (AUTO) 71.3 % (43.0-81.0); PLATELET COUNT (AUTO) 162 K/uL (150-450); RED BLOOD CELL COUNT(AUTO) 4.69 MIL/uL (4.0-5.2); RED CELL DISTRIBUTION WIDTH 14.2 % (11.5-15.0); WHITE BLOOD COUNT (AUTO) 7.2 K/uL (4.3-11.0)
[2023-09-09 06:30] LABS: INR 1.18 (0.91-1.10); PARTIAL THROMBOPLASTIN TIME 29.2 SEC (24.3-34.3); PROTHROMBIN TIME 12.4 SECS (9.2-11.1)
[2023-09-09 06:55] LABS: CARBON DIOXIDE 26 mmol/L (21-32); CHLORIDE 103 mmol/L (98-107); GLUCOSE 174 mg/dL (74-106); SODIUM SERUM 138 mmol/L (136-145); UREA NITROGEN, BLOOD 14 mg/dL (7-18)
[2023-09-09 07:11] LABS: ALANINE AMINOTRANSFERASE 21 U/L (12-78); ALBUMIN 3.5 g/dL (3.4-5.0); ALKALINE PHOSPHATASE 74 U/L (46-116); ASPARTATE AMINOTRANSFERASE 21 U/L (15-37); BILIRUBIN,DIRECT 0.1 mg/dL (0.0-0.2); BILIRUBIN,TOTAL 0.5 mg/dL (0.2-1.0); NT-PRO BNP 241 pg/mL (0-125); TOTAL PROTEIN, SERUM 6.9 g/dL (6.4-8.2)
[2023-09-09] MEDS ORDERED: ASPIRIN 325 MG TABLET ONE (07:30)
[2023-09-09] MEDS ORDERED: ASPIRIN 325 MG TABLET PO ONE (07:30)
[2023-09-09] MEDS ORDERED: OXYC15TA2 PO (10:09)
[2023-09-09] MEDS ORDERED: INSU100V3 SQ (10:09)
[2023-09-09] MEDS ORDERED: DULA0.75 SQ (10:09)
[2023-09-09] MEDS ORDERED: GABA-532 PO (10:10)
[2023-09-09] MEDS ORDERED: EMPA1TAB7 PO (10:10)
[2023-09-09] MEDS ORDERED: CHOL100043 PO (10:10)
[2023-09-09] MEDS ORDERED: CALC500T52 PO (10:10)
[2023-09-09] MEDS ORDERED: ATOR40TA PO (10:10)
[2023-09-09] MEDS ORDERED: ALPR0.5T PO (10:10)
[2023-09-09] MEDS ORDERED: CARV25TA2 PO (10:10)
[2023-09-09] MEDS ORDERED: LOSA100T31 PO (10:10)
[2023-09-09] MEDS ORDERED: FURO-145 PO (10:10)
[2023-09-09 11:15] VITALS: BP 134/48; TEMP 98.6; O2SAT 99
[2023-09-09] MEDS ORDERED: ALPRAZOLAM 0.5 MG TABLET PO PRN (12:30)
[2023-09-09] MEDS ORDERED: MAG HYDROX/AL HYDROX/SIMETH 30 ML UDC PO PRN (12:30)
[2023-09-09] MEDS ORDERED: ACETAMINOPHEN 325 MG TABLET PO PRN (12:30)
[2023-09-09] MEDS ORDERED: FUROSEMIDE 20 MG TABLET PO PRN (12:30)
[2023-09-09] MEDS ORDERED: Z GUARD REMEDY 4 OZ OINT TP PRN (12:30)
[2023-09-09] MEDS ORDERED: ONDANSETRON HCL/PF 4 MG/2 ML VIAL IVP PRN (12:30)
[2023-09-09] MEDS ORDERED: MAGNESIUM HYDROXIDE 30 ML UDC PO PRN (12:30)
[2023-09-09 13:00] VITALS: BP 134/48; TEMP 98.6; O2SAT 99
[2023-09-09] MEDS ORDERED: ENOXAPARIN SODIUM 40 MG/0.4 ML DISP.SYRIN SQ SCH (13:00)
[2023-09-09 13:13] LABS: THYROID STIMULATING HORMONE 1.28 uIU/mL (0.358-3.74)
[2023-09-09] MEDS: oxyCODONE IR immediate release 5 MG PO PRN ×2 (15:52→21:30)
[2023-09-09 16:00] VITALS: BP 143/71; TEMP 98.4; O2SAT 97
[2023-09-09] MEDS: BLOOD SUGAR DIAGNOSTIC 1 EACH STRIP IN SCH ×2 (17:34→21:07)
[2023-09-09] MEDS: CARVEDILOL 12.5 MG TABLET PO SCH (17:35)
[2023-09-09] MEDS ORDERED: BLOOD SUGAR DIAGNOSTIC 1 EACH STRIP IN SCH (18:00)
[2023-09-09 20:00] VITALS: BP 128/58; TEMP 97.7; O2SAT 98
[2023-09-09] MEDS: GABAPENTIN 100 MG CAPSULE PO SCH (21:07)
[2023-09-10] VITALS: BP 117/47; TEMP 98.4; O2SAT 95
[2023-09-10 04:00] VITALS: BP 140/62; TEMP 98.2; O2SAT 95
[2023-09-10 06:12] LABS: BASOPHILS % (AUTO) 0.8 % (0.0-2.0); EOSINOPHILS # (AUTO) 0.2 K/uL (0.0-0.7); EOSINOPHILS % (AUTO) 2.6 % (0.0-6.0); HEMATOCRIT 41 % (33-45); HEMOGLOBIN 13.5 g/dL (11.5-14.8); LYMPHOCYTES # (AUTO) 2.2 K/uL (0.8-4.8); LYMPHOCYTES % (AUTO) 35.6 % (20.0-44.0); MEAN CORPUSCULAR HEMOGLOBIN 29 PG (26.0-33.0); MEAN CORPUSCULAR HGB CONC 33 g/dl (31.0-36.0); MEAN CORPUSCULAR VOLUME 90 fL (82-100); MONOCYTES # (AUTO) 0.4 K/uL (0.1-1.30); MONOCYTES % (AUTO) 7.4 % (2.0-12.0); NEUTROPHILS # (AUTO) 3.3 K/uL (1.8-8.9); NEUTROPHILS % (AUTO) 53.6 % (43.0-81.0); PLATELET COUNT (AUTO) 163 K/uL (150-450); RED BLOOD CELL COUNT(AUTO) 4.57 MIL/uL (4.0-5.2); RED CELL DISTRIBUTION WIDTH 14.3 % (11.5-15.0); WHITE BLOOD COUNT (AUTO) 6.1 K/uL (4.3-11.0)
[2023-09-10 06:17] LABS: CALCIUM, SERUM 9.2 mg/dL (8.5-10.1); CREATININE 0.8 mg/dL (0.6-1.3); POTASSIUM 3.9 mmol/L (3.5-5.1)
[2023-09-10 06:19] LABS: INR 1.03 (0.91-1.10); PARTIAL THROMBOPLASTIN TIME 26.8 SEC (24.3-34.3); PROTHROMBIN TIME 10.9 SECS (9.2-11.1)
[2023-09-10] MEDS: BLOOD SUGAR DIAGNOSTIC 1 EACH STRIP IN SCH ×4 (07:04→21:41)
[2023-09-10 08:00] VITALS: BP 142/63; TEMP 98; O2SAT 97
[2023-09-10] MEDS: CHOLECALCIFEROL 1,000 UNIT TABLET (VIT D3) PO SCH (08:22)
[2023-09-10] MEDS: PANTOPRAZOLE 40 MG TABLET.DR PO SCH (08:24)
[2023-09-10] MEDS: GABAPENTIN 100 MG CAPSULE PO SCH ×2 (08:24→21:40)
[2023-09-10] MEDS: ATORVASTATIN 40 MG TABLET PO SCH (08:24)
[2023-09-10] MEDS: CALCIUM CARBONATE (1250) 500 MG TABLET PO SCH (08:24)
[2023-09-10] MEDS: LOSARTAN POTASSIUM 50 MG TABLET PO SCH (08:24)
[2023-09-10] MEDS: CARVEDILOL 12.5 MG TABLET PO SCH ×2 (08:25→16:48)
[2023-09-10] MEDS: CLOTRIMAZOLE 1% 15 GM TUBE TP SCH ×2 (08:26→16:48)
[2023-09-10] MEDS: oxyCODONE IR immediate release 5 MG PO PRN ×3 (08:50→22:38)
[2023-09-10] MEDS ORDERED: ASPIRIN 81 MG TAB.CHEW PO SCH (09:00)
[2023-09-10 10:00] VITALS: BP 142/63; TEMP 98; O2SAT 97
[2023-09-10] MEDS ORDERED: IOHEXOL-350 100 ML VIAL IV ONE (13:05)
[2023-09-10] MEDS ORDERED: IV NS 0.9% 250 ML IV ONE (13:06)
[2023-09-10] MEDS: APIXABAN 5 MG TABLET PO SCH ×2 (13:50→16:47)
[2023-09-10 16:05] VITALS: BP 142/84; TEMP 98.2; O2SAT 96
[2023-09-10 20:00] VITALS: BP 127/62; TEMP 99; O2SAT 97
[2023-09-11] MEDS: PANTOPRAZOLE 40 MG TABLET.DR PO SCH (06:35)
[2023-09-11] MEDS: oxyCODONE IR immediate release 5 MG PO PRN ×3 (06:35→22:42)
[2023-09-11] MEDS: BLOOD SUGAR DIAGNOSTIC 1 EACH STRIP IN SCH ×4 (06:35→21:03)
[2023-09-11] MEDS: CHOLECALCIFEROL 1,000 UNIT TABLET (VIT D3) PO SCH (09:00)
[2023-09-11] MEDS: APIXABAN 5 MG TABLET PO SCH ×2 (09:00→17:16)
[2023-09-11] MEDS: ATORVASTATIN 40 MG TABLET PO SCH (09:00)
[2023-09-11] MEDS: GABAPENTIN 100 MG CAPSULE PO SCH ×2 (09:00→21:03)
[2023-09-11] MEDS: CALCIUM CARBONATE (1250) 500 MG TABLET PO SCH (09:00)
[2023-09-11] MEDS: LOSARTAN POTASSIUM 50 MG TABLET PO SCH (09:01)
[2023-09-11] MEDS: CARVEDILOL 12.5 MG TABLET PO SCH ×2 (09:01→17:16)
[2023-09-11] MEDS: CLOTRIMAZOLE 1% 15 GM TUBE TP SCH ×2 (09:12→16:35)
[2023-09-11 16:00] VITALS: BP 128/58; TEMP 98.8; O2SAT 99
[2023-09-11 20:00] VITALS: BP 120/53; TEMP 98.4; O2SAT 98
[2023-09-12] MEDS: BLOOD SUGAR DIAGNOSTIC 1 EACH STRIP IN SCH ×3 (06:37→17:25)
[2023-09-12] MEDS: PANTOPRAZOLE 40 MG TABLET.DR PO SCH (06:42)
[2023-09-12] MEDS: oxyCODONE IR immediate release 5 MG PO PRN ×2 (06:42→15:00)
[2023-09-12] MEDS: CALCIUM CARBONATE (1250) 500 MG TABLET PO SCH (08:07)
[2023-09-12] MEDS: CHOLECALCIFEROL 1,000 UNIT TABLET (VIT D3) PO SCH (08:07)
[2023-09-12] MEDS: GABAPENTIN 100 MG CAPSULE PO SCH (08:07)
[2023-09-12] MEDS: ATORVASTATIN 40 MG TABLET PO SCH (08:07)
[2023-09-12] MEDS: CARVEDILOL 12.5 MG TABLET PO SCH ×2 (08:12→16:26)
[2023-09-12] MEDS: LOSARTAN POTASSIUM 50 MG TABLET PO SCH (08:12)
[2023-09-12] MEDS: CLOTRIMAZOLE 1% 15 GM TUBE TP SCH ×2 (08:13→16:50)
[2023-09-12] MEDS: APIXABAN 5 MG TABLET PO SCH ×2 (08:14→16:29)
[2023-09-12 08:30] VITALS: BP 127/64; TEMP 98.5; O2SAT 98
[2023-09-12 16:06] VITALS: BP 136/61; TEMP 98.6; O2SAT 97
[2023-09-12 16:26] VITALS: BP 136/61
== END 2023-09-12 19:30 | DRG 65 ==
LOC: ER 05:23 → TELE 10:07 → MED 09-10 13:08
PROVIDERS: ATTEND Internal Medicine
DX: I63.9 Cerebral infarction, unspecified (principal); G81.91 Hemiplegia, unspecified affecting right dominant side; E11.65 Type 2 diabetes mellitus with hyperglycemia; I10 Essential (primary) hypertension; E78.5 Hyperlipidemia, unspecified; I25.10 Atherosclerotic heart disease of native coronary artery without angina pectoris; Z79.4 Long term (current) use of insulin; Z79.01 Long term (current) use of anticoagulants; Z88.2 Allergy status to sulfonamides; Z86.73 Personal history of transient ischemic attack (TIA), and cerebral infarction without residual deficits; Z85.3 Personal history of malignant neoplasm of breast; Z79.84 Long term (current) use of oral hypoglycemic drugs; Z88.3 Allergy status to other anti-infective agents; I48.0 Paroxysmal atrial fibrillation; M17.0 Bilateral primary osteoarthritis of knee; E66.01 Morbid (severe) obesity due to excess calories; G47.33 Obstructive sleep apnea (adult) (pediatric); Z68.35 Body mass index [BMI] 35.0-35.9, adult; R29.704 NIHSS score 4; I72.5 Aneurysm of other precerebral arteries; R29.700 NIHSS score 0
CPT/HCPCS: 36415; 70450-TC; 70496-TC; 70498-TC; 70551-TC; 71045-TC; 80048-TC; 80061-TC; 80076-TC; 82607-TC; 82962-TC; 83880; 84439-TC; 84443-TC; 84484-TC; 85025-TC; 85652-TC; 85730-TC; 92526; 92611-TC; 97110-TC; 97116-TC; 97530-TC; 97535-TC; G0378; J1650; J7050; Q9967

== ENCOUNTER 2024-07-20 07:20 | Day surgery (SDC) | payer BC ==
[~2024-07-20 07:20] MED LIST changes: +ALPR0.5T PO; -ATOR10TA GT; +ATOR40TA PO; +CALC500T52 PO; -CANA100T PO; +CARV25TA2 PO; +CHOL100043 PO; -CHOL500052 PO; +DULA0.75 SQ; +EMPA1TAB7 PO; +FURO-145 PO; -GABA-534 PO; -HYDR-4354 PO; -INSU100V28 IJ; +INSU100V3 SQ; +LOSA100T31 PO; -LOSA1TAB39 PO; -METO100T14 PO; +OXYC15TA2 PO
[2024-07-20] MEDS ORDERED: ANESTHESIA TRAY IN PYXIS 1 EA TRAY MC ONE ×2 (07:39→11:08)
[2024-07-20 09:11] LABS: ALBUMIN 3.8 g/dL (3.4-5.0); BILIRUBIN,TOTAL 0.9 mg/dL (0.2-1.0); CALCIUM, SERUM 9.5 mg/dL (8.5-10.1); CREATININE 0.8 mg/dL (0.6-1.3); POTASSIUM 4.7 mmol/L (3.5-5.1); TOTAL PROTEIN, SERUM 7.4 g/dL (6.4-8.2)
[2024-07-20 09:12] LABS: INR 0.99 (0.91-1.10); PROTHROMBIN TIME 10.5 SECS (9.2-11.1)
== END 2024-07-20 10:50 | disposition home or self-care (01) ==
LOC: DS 07:20
PROVIDERS: ATTEND Internal Medicine Gastroenterology
DX: Z12.11 Encounter for screening for malignant neoplasm of colon (principal); D12.5 Benign neoplasm of sigmoid colon; D12.8 Benign neoplasm of rectum; K64.8 Other hemorrhoids; K29.70 Gastritis, unspecified, without bleeding; K22.2 Esophageal obstruction; I25.10 Atherosclerotic heart disease of native coronary artery without angina pectoris; I10 Essential (primary) hypertension; G47.33 Obstructive sleep apnea (adult) (pediatric); E10.9 Type 1 diabetes mellitus without complications; E66.3 Overweight; Z68.36 Body mass index [BMI] 36.0-36.9, adult; Z79.4 Long term (current) use of insulin; Z79.899 Other long term (current) drug therapy; Z86.73 Personal history of transient ischemic attack (TIA), and cerebral infarction without residual deficits; E78.00 Pure hypercholesterolemia, unspecified; Z85.3 Personal history of malignant neoplasm of breast; Z82.49 Family history of ischemic heart disease and other diseases of the circulatory system; Z83.3 Family history of diabetes mellitus
CPT/HCPCS: 36415; 43239; 43249; 45380; 71045; 80053; 82962; 85610; 85730; 88305; 88313; 88342; 93005; C1726; J2704; J3490; J7030

== ENCOUNTER 2025-07-29 08:58 | Outpatient (CLI) | payer BC | END 2025-07-29 23:59 | disposition home or self-care (01) | LOC: US 08:58 | PROVIDERS: ATTEND Legal Medicine | DX: E04.2 Nontoxic multinodular goiter (principal) | CPT/HCPCS: 76536-TC ==